=== PATIENT | male | born 1980 | race African-American/Black ===

== ENCOUNTER 2019-06-24 17:09 | Emergency (ER) | payer MEDICAID, SELFPAY ==
[~2019-06-24] VITALS: Ht 180.3 cm; Wt 104.5 kg
[2019-06-24 19:08] LABS: CHLAMYDIA DNA AMPLIFICATION NEGATIVE (NEGATIVE); GC DNA AMPLIFICATION POSITIVE (NEGATIVE)
[2019-06-24] MEDS ORDERED: FLAG500T PO (19:37)
[2019-06-24 19:43] VITALS: BP 131/62
[2019-06-24] MEDS ORDERED: LIDOCAINE 1% SDV 5 ML VIAL DILUENT ONE (19:45)
[2019-06-24] MEDS ORDERED: cefTRIAXone SOD 250 MG VIAL (J0696) IM ONE (19:45)
[2019-06-24] MEDS ORDERED: AZITHROMYCIN 250 MG TAB PO ONE (19:45)
== END 2019-06-24 20:19 | disposition home or self-care (01) ==
LOC: M ED 17:09
DX: A54.9 Gonococcal infection, unspecified (principal); I10 Essential (primary) hypertension; F17.200 Nicotine dependence, unspecified, uncomplicated
CPT/HCPCS: 81001; 87086; 87491; 87591; 87661; 96372; 99284; J0696

== ENCOUNTER → 2019-08-08 | Outpatient (CLI) | payer MEDICAID ==
[~2019-08-08] MED LIST: FLAG500T PO
== END ==
LOC: M OUTALCOH 10:11
PROVIDERS: ATTEND Psychiatry & Neurology Psychiatry
DX: Z03.89 Encounter for observation for other suspected diseases and conditions ruled out (principal)

== ENCOUNTER 2019-08-18 20:20 | Emergency (ER) | payer MEDICAID, OTHER ==
[~2019-08-18] VITALS: Ht 177.8 cm; Wt 96.8 kg
[2019-08-18 21:56] VITALS: BP 144/83
[2019-08-18 22:15] LABS: CHLAMYDIA DNA AMPLIFICATION POSITIVE (NEGATIVE); GC DNA AMPLIFICATION POSITIVE (NEGATIVE)
[2019-08-18] MEDS ORDERED: AZITHROMYCIN 250 MG TAB PO ONE (22:45)
[2019-08-18] MEDS ORDERED: cefTRIAXone SOD 250 MG VIAL (J0696) IM ONE (22:45)
[2019-08-18] MEDS ORDERED: LIDOCAINE 1% SDV 5 ML VIAL DILUENT ONE (22:45)
[2019-08-18] MEDS ORDERED: MACR100C43 PO (23:29)
== END 2019-08-18 23:55 | disposition home or self-care (01) ==
LOC: M ED 20:20
DX: N39.0 Urinary tract infection, site not specified (principal); A56.09 Other chlamydial infection of lower genitourinary tract; A54.9 Gonococcal infection, unspecified; I10 Essential (primary) hypertension; F17.210 Nicotine dependence, cigarettes, uncomplicated
CPT/HCPCS: 81001; 87086; 87661; 96372; 99283; J0696

== ENCOUNTER 2019-08-30 12:58 | Outpatient (RCR) | payer MEDICAID ==
[~2019-08-30 12:58] MED LIST changes: +MACR100C43 PO
== END 2019-09-23 ==
LOC: M OUTALCOH 12:58
PROVIDERS: ATTEND Psychiatry & Neurology Psychiatry
DX: Z03.89 Encounter for observation for other suspected diseases and conditions ruled out (principal); Z72.0 Tobacco use

== ENCOUNTER → 2019-09-27 | Outpatient (REF) | payer MEDICAID ==
[2019-09-27 22:09] LABS: CHLAMYDIA DNA AMPLIFICATION NEGATIVE (NEGATIVE); GC DNA AMPLIFICATION POSITIVE (NEGATIVE)
== END ==
LOC: M LAB REF 19:34
PROVIDERS: ATTEND Physician Assistant Medical
DX: Z11.3 Encounter for screening for infections with a predominantly sexual mode of transmission (principal)

== ENCOUNTER 2022-10-31 16:28 | Emergency (ER) | payer OTHER ==
[~2022-10-31] VITALS: Ht 177.8 cm; Wt 134.2 kg
[2022-10-31] MEDS ORDERED: LIDOCAINE 1% SDV 5ML VIAL DILUENT ONE (18:00)
[2022-10-31] MEDS ORDERED: cefTRIAXone 500MG VIAL IM ONE (18:00)
[2022-10-31] MEDS ORDERED: DOXYCYCLINE HYCLATE 100MG TABLET PO ONE (18:00)
[2022-10-31] MEDS ORDERED: NITR1CAP11 PO (18:01)
[2022-10-31 19:01] LABS: GC DNA AMPLIFICATION POSITIVE (NEGATIVE)
[2022-10-31 19:24] VITALS: BP 164/114
== END 2022-10-31 19:26 | disposition home or self-care (01) ==
LOC: M ED 16:28
DX: N34.1 Nonspecific urethritis (principal); N39.0 Urinary tract infection, site not specified; Z20.2 Contact with and (suspected) exposure to infections with a predominantly sexual mode of transmission; F17.200 Nicotine dependence, unspecified, uncomplicated
CPT/HCPCS: 81001; 87086; 87661; 87810; 87850; 96372; 99284; J0696

== ENCOUNTER 2023-12-07 20:22 | Emergency (ER) | payer OTHER ==
[~2023-12-07] VITALS: Ht 177.8 cm; Wt 129.5 kg
[~2023-12-07 20:22] MED LIST changes: +NITR1CAP11 PO
[2023-12-08] MEDS: IBUPROFEN 600MG TAB PO ONE (04:39)
[2023-12-08] MEDS ORDERED: IBUP80TA PO (06:47)
[2023-12-08 06:49] VITALS: BP 128/78; TEMP 98.8; O2SAT 98
== END 2023-12-08 06:51 | disposition home or self-care (01) ==
LOC: M ED 20:22
DX: M10.9 Gout, unspecified (principal)